=== PATIENT | female | born 1975 ===

== ENCOUNTER 2018-06-20 07:29 | Outpatient (CLI) | payer OTHER | END 2018-06-20 07:35 | disposition home or self-care (01) | LOC: SONOGRAMA 07:29 | DX: E04.1 Nontoxic single thyroid nodule (principal) ==

== ENCOUNTER 2022-09-28 08:45 | Outpatient (CLI) | payer OTHER | END 2022-09-28 08:51 | disposition home or self-care (01) | LOC: SONOGRAMA 08:45 | PROVIDERS: ATTEND Pathology Anatomic Pathology & Clinical Pathology | DX: E04.2 Nontoxic multinodular goiter (principal) ==